=== PATIENT | male | born 1950 | race Caucasian/White ===

== ENCOUNTER → 2017-12-08 | Outpatient (CLI) | payer OTHER | LOC: BRMIMAGING 15:39 | PROVIDERS: ATTEND Internal Medicine | DX: S22.32XA Fracture of one rib, left side, initial encounter for closed fracture (principal); W19.XXXA Unspecified fall, initial encounter; J98.11 Atelectasis | CPT/HCPCS: 71046-PO ==

== ENCOUNTER → 2018-11-25 | Outpatient (CLI) | payer OTHER | LOC: BHFA 14:45 | PROVIDERS: ATTEND Internal Medicine Cardiovascular Disease | DX: R06.09 Other forms of dyspnea (principal) ==